=== PATIENT | male | born 1995 | race Caucasian/White ===

== ENCOUNTER 2018-06-10 12:47 | Emergency (ER) | payer BC, SELFPAY ==
[2018-06-10 13:05] VITALS: BP 141/80; PULSE 82; RESP 20; TEMP 36.9; O2SAT 100; BMI 27.7
--- NOTE | 2018-06-10 13:09 | DI.RAD.S_ITS ---
PROCEDURE: XR WRIST LT MIN 3V INDICATIONS: injury, pain TECHNIQUE: 3 views of the wrist were acquired. COMPARISON: None. FINDINGS: Bones: No fractures or dislocations. No suspicious bony lesions. Soft tissues: No suspicious soft tissue calcifications. IMPRESSION: 1. No fracture or subluxation. Dictated by: Martin Neal M.D. on 06/10/2018 at 13:42 Approved by: Martin Neal M.D. on 06/10/2018 at 13:42
--- NOTE | 2018-06-10 15:01 | ED_ITS ---
HPI - Extremity Injury (Upper) <ROBBY Man - Last Filed: 06/10/18 22:17> General Chief Complaint: Extremity Injury, Upper Stated Complaint: state broken left wrist Time Seen by Provider: 06/10/18 12:58 Source: patient Mode of arrival: ambulatory Limitations: no limitations History of Present Illness HPI narrative: 22-year-old healthy male that is a nonsmoker here for complaint of pain to his left wrist. He states he had a ground level fall while playing baseball landing on top of his glove with pain into his left wrist afterwards.. He reports increased pain with motion of the left wrist. He reports having slight swelling. Injury is limited to the left wrist. No other concerns or complaints at this timeframe. MD complaint: injury to: left and wrist Related Data Allergies Allergy/AdvReac Type Severity Reaction Status Date / Time No Known Drug Allergies Allergy Verified 06/10/18 15:07 Review of Systems <ROBBY Man - Last Filed: 06/10/18 22:17> Constitutional Denies chills, Denies fever(s), Denies lethargy and Denies weakness Eyes Denies change in vision, Denies eye discharge, Denies irritation and Denies loss of vision ENT Ears, Nose, Mouth, and Throat: Denies change in voice, Denies neck pain and Denies sore throat Cardiovascular Denies chest pain, Denies irregular heart rhythm, Denies lightheadedness, Denies palpitations, Denies dyspnea, Denies dyspnea on exertion and Denies orthopnea Respiratory Denies cough, Denies dyspnea, Denies dyspnea on exertion and Denies wheezing Gastrointestinal Gastrointestinal: Denies abdominal pain, Denies change in bowel habits, Denies diarrhea, Denies nausea and Denies vomiting Genitourinary Denies hematuria, Denies flank pain, Denies urinary incontinence and Denies urinary urgency Musculoskeletal Denies neck pain Comments: Pain and swelling to left wrist after ground level fall Integumentary/Breasts Denies pruritus, Denies erythema, Denies rash and Denies wounds Neurologic Denies confusion, Denies loss of vision and Denies weakness Psychiatric Denies anxiety, Denies confusion, Denies depression, Denies homicidal ideation and Denies suicidal ideation Endocrine Denies palpitations Hematologic/Lymphatic Denies easy bruising Allergic/Immunologic Denies wheezing Exam <ROBBY Mna - Last Filed: 06/10/18 22:17> Initial Vital Signs Initial Vital Signs: Vital Signs Temperature 98.4 F 06/10/18 13:05 Pulse Rate 82 06/10/18 13:05 Respiratory Rate 20 06/10/18 13:05 Blood Pressure 141/80 H 06/10/18 13:05 Pulse Oximetry 100 06/10/18 13:05 Const General: cooperative and well developed Nutritional Appearance: well nourished Orientation: alert, awake, oriented x3 and not confused [facility] Mouth: oral mucosae normal and moist mucous membranes Eyes Conjunctivae: conjunctivae normal Sclera: sclerae normal Pupils: PERRL EOM: EOM intact bilaterally Resp Effort & Inspection: normal respiratory effort, able to speak in complete sentences, no respiratory distress and no use of accessory muscles Auscultation: clear to auscultation bilaterally, no rales, no rhonchi and no wheezes Cardio Rate: regular rate Rhythm: regular rhythm Heart Sounds: no click, no gallops, no murmurs and no rubs Pulses: normal peripheral pulses Skin General: no rashes or lesions noted, No jaundice and No petechiae Neuro General: alert, oriented x3, gait normal and no focal motor deficits Speech: speech normal Extrem Other: Left wrist with slight amount of swelling. No ecchymosis. No deformities. No open lesions. Full range of motion distally. Distal pulses are intact. Distal sensation is intact. No snuffbox tenderness <Kathe Alarcon MD - Last Filed: 06/11/18 14:11> Initial Vital Signs Initial Vital Signs: Vital Signs Temperature 98.4 F 06/10/18 13:05 Pulse Rate 82 06/10/18 13:05 Respiratory Rate 20 06/10/18 13:05 Blood Pressure 141/80 H 06/10/18 13:05 Pulse Oximetry 100 06/10/18 13:05 Course <ROBBY Man - Last Filed: 06/10/18 22:17> Orders Ordered: Discontinued Medications Hydromorphone HCl (Dilaudid) 1 mg IV NOW ONE Stop: 06/10/18 14:51 Last Admin: 06/10/18 15:07 Dose: Sodium Chloride (Normal Saline 0.9%) 1,000 mls @ 150 mls/hr IV CONT REYNA Last Admin: 06/10/18 15:07 Dose: Ondansetron HCl (Zofran) 4 mg IV NOW ONE Stop: 06/10/18 14:51 Last Admin: 06/10/18 15:07 Dose: Vital Signs - 8 hr 06/10/18 15:29 Pulse Rate 72 Respiratory Rate 12 Blood Pressure 115/67 Pulse Oximetry 97 <Kathe Alarcon MD - Last Filed: 06/11/18 14:11> Orders Ordered: Discontinued Medications Hydromorphone HCl (Dilaudid) 1 mg IV NOW ONE Stop: 06/10/18 14:51 Last Admin: 06/10/18 15:07 Dose: Sodium Chloride (Normal Saline 0.9%) 1,000 mls @ 150 mls/hr IV CONT REYNA Last Admin: 06/10/18 15:07 Dose: Ondansetron HCl (Zofran) 4 mg IV NOW ONE Stop: 06/10/18 14:51 Last Admin: 06/10/18 15:07 Dose: Vital Signs - 8 hr 06/10/18 15:29 Pulse Rate 72 Respiratory Rate 12 Blood Pressure 115/67 Pulse Oximetry 97 MDM - Extremity Injury (Upper) <ROBBY Man - Last Filed: 06/10/18 22:17> [facility] Narrative Medical decision making narrative: X-ray the left wrist was obtained and was negative for any fractures or dislocations. Signs symptoms presents as left wrist sprain. He is placed in a premade splint for comfort and support. Over- the-counter Tylenol or Motrin as needed for any discomfort. Ice and elevation help with any swelling. Follow up with primary care provider next week. For any worsening symptoms return emergency room. Discharge Plan Departure Patient Disposition: Home Clinical Impression: Sprain and strain of wrist Discharge Date/Time: 06/10/18 15:29 Interventions: ED Discharge Assessment Last Done: 06/10/18 15:29 Instructions: DI for Wrist Sprain Activity Restrictions/Additional Instructions: X-ray the left wrist was obtained and was negative for any fractures or dislocations. Signs symptoms presents as left wrist sprain. You have been placed in a splint for comfort and support use as directed. [id number] Tylenol or Motrin as needed for any discomfort. Ice and elevation help with any swelling. Follow up with primary care provider next week. For any worsening symptoms return emergency room. Referrals: [facility] [Provider Group]
[2018-06-10 15:29] VITALS: BP 115/67; PULSE 72; RESP 12; O2SAT 97
== END 2018-06-10 15:29 | disposition home or self-care (01) ==
PROVIDERS: Emergency Provider Nurse Practitioner Family
DX: S63.502A Unspecified sprain of left wrist, initial encounter (principal); W19.XXXA Unspecified fall, initial encounter
CPT/HCPCS: 29260; 73110; 99282; 99283